=== PATIENT | female | born 1995 | race African-American/Black ===

== ENCOUNTER 2017-08-18 19:20 | Emergency (ER) | payer OTHER ==
[2017-08-18] MEDS: NORCO, ANEXSIA 5/325MG TABLET (HYDROcodone/ACETAMINOPHEN) PO (20:49)
== END 2017-08-18 20:53 | disposition home or self-care (01) ==
LOC: M ED 19:20
DX: S90.111A Contusion of right great toe without damage to nail, initial encounter (principal); S90.112A Contusion of left great toe without damage to nail, initial encounter; X58.XXXA Exposure to other specified factors, initial encounter; Y92.89 Other specified places as the place of occurrence of the external cause; J45.909 Unspecified asthma, uncomplicated; Z79.899 Other long term (current) drug therapy; Z88.8 Allergy status to other drugs, medicaments and biological substances
CPT/HCPCS: 99284

== ENCOUNTER 2017-09-30 10:16 | Emergency (ER) | payer OTHER | END 2017-09-30 11:49 | disposition home or self-care (01) | LOC: M ED 10:16 | DX: F41.9 Anxiety disorder, unspecified (principal); J45.909 Unspecified asthma, uncomplicated; Z88.8 Allergy status to other drugs, medicaments and biological substances; Z91.048 Other nonmedicinal substance allergy status; Z79.899 Other long term (current) drug therapy | CPT/HCPCS: 99282 ==

== ENCOUNTER 2018-05-04 10:04 | Emergency (ER) | payer OTHER | END 2018-05-04 10:35 | disposition home or self-care (01) | LOC: M ED 10:04 | DX: M54.9 Dorsalgia, unspecified (principal); G89.29 Other chronic pain; J45.909 Unspecified asthma, uncomplicated; Z88.8 Allergy status to other drugs, medicaments and biological substances; Z91.048 Other nonmedicinal substance allergy status; Z79.899 Other long term (current) drug therapy; Z79.51 Long term (current) use of inhaled steroids | CPT/HCPCS: 99282 ==